=== PATIENT | female | born 1980 | race Two or more races ===

== ENCOUNTER 2024-06-19 11:12 | Emergency (ER) | payer SELFPAY ==
[2024-06-19 11:56] VITALS: BP 132/88; PULSE 93; RESP 16; TEMP 37; O2SAT 98; BMI 30.9
--- NOTE | 2024-06-19 12:03 | PD.EDADULT ---
ED General RME/HPI General Chief complaint: General Adult/Misc Complain Stated complaint: PREVIOUS NUMBNESS B/L HANDS AND RIGHT JAW Time Seen by Provider: 06/19/24 11:39 Arrival date/time: 06/19/24 11:12 RME / HPI RME / HPI narrative: 43-year-old female patient came in for evaluation regarding swelling to the right jaw area, throat swelling, and numbness to the bilateral hands. This been ongoing for the last several hours. Patient denies any shortness of breath. Denies any rashes. Denies any itchiness. Patient denies any swelling of the tongue. Patient was just recently started on lisinopril 10 mg daily for the last 3 days. Has been taking it for 3 days. No medication was taken prior travel. Related Data Previous Rx's ?Medication ?Instructions ?Recorded diphenhydramine HCl 25 mg capsule 25 mg PO TID PRN allergic reaction 06/19/24 (Aler-Cap) #30 caps prednisone 50 mg tablet 50 mg PO QDAY 5 days #5 tabs 06/19/24 Allergies Allergy/AdvReac Type Severity Reaction Status Date / Time No Known Allergies Allergy Verified 06/19/24 11:14 Review of Systems Review of Systems Narrative Review of Systems: Review of system reviewed and within normal limits except mentioned in HPI ED Exam Narrative Physical exam: VITAL SIGNS: Reviewed. GENERAL APPEARANCE: Alert and interactive, follows commands, no acute distress, HEAD AND FACE: Non-traumatic. ENT: PERRL, pink conjunctivitis, eyelid no trauma, Mucous membrane moist. No swelling noted on the bilateral mandibular area. NECK: Supple, nontender, no nuchal rigidity. CHEST: No tenderness, no crepitus, no paradoxical movement, no retractions. LUNGS: Clear, well ventilated, symmetric, no rales, no wheezing, no ronchi, no stridor, good breath sounds bilaterally. HEART: Regular rate, regular rhythm, no murmur, no gallops. ABDOMEN: Soft, positive bowel sounds, nondistended, no guarding, nontender, no rebound, no masses, RECTAL: Deferred. GENITAL: Deferred. NEUROLOGICAL: Gross motor function intact sensory function intact, Appropriate for age. MUSCULOSKELETAL: low back nontender, full range of motion. EXTREMITIES: Nontender, full range of motion. SKIN: Color pink, dry, no rash, no lacerations, no abrasions, no contusions. LYMPHATICS: Deferred. Course Quality Measures none Orders Category Date Time Status DiphenhydrAMINE [Benadryl] Med 06/19/24 12:02 Discontinued 50 mg PO X1 ONE Famotidine [Pepcid] Med 06/19/24 12:02 Discontinued 40 mg PO X1 ONE predniSONE Med 06/19/24 12:02 Discontinued 60 mg PO X1 ONE Vital Signs Vital signs: Vital Signs Temperature 98.6 F 06/19/24 11:56 Pulse Rate 93 06/19/24 11:56 Respiratory Rate 16 06/19/24 11:56 Blood Pressure 132/88 H 06/19/24 11:56 Pulse Oximetry (%) 98 06/19/24 11:56 Oxygen Delivery Method Room Air 06/19/24 11:56 [facility] Patient data External records reviewed:: None Clinical information provided by:: patient Social determinants that could affect healthcare access:: none Patient has the following chronic illnesses:: Hypertension How is presenting disease/condition affected by chronic disease/condition?: exacerbated by Evaluation data The following diagnostics were reviewed and interpreted by me:: other (specify) (None) Lab and/or radiology exams considered but not ordered:: None none none Interpretation Summary: None Medications Medications considered but not ordered:: None Medication administrations:: Medication Administration History Discontinued Medications Diphenhydramine HCl (Diphenhydramine 25 Mg Capsule) 50 mg PO X1 ONE Stop: 06/19/24 12:03 Last Admin: 06/19/24 12:30 Dose: 50 mg Documented By: BABAK Famotidine (Famotidine 20 Mg Tablet) 40 mg PO X1 ONE Stop: 06/19/24 12:03 Last Admin: 06/19/24 12:30 Dose: 40 mg Documented By: BABAK Prednisone (Prednisone 20 Mg Tablet) 60 mg PO X1 ONE Stop: 06/19/24 12:03 Last Admin: 06/19/24 12:30 Dose: 60 mg Documented By: BABAK Prednisone, famotidine, Benadryl Consultations Consultation(s) initiated? (list below): No Diagnosis Differential Diagnosis ED Complaint MDM: Allergic reaction, drug allergy, adverse effect of lisinopril Most likely diagnosis given after review of the tests above:: Drug allergy Admission Indicated Admission indicated?: not indicated Explain why admission is indicated or not indicated:: Stable Admission Request Was there a request for admission?: No Disposition Plan Disposition Plan: Discharge Discharge Attestation Discharge Attestation: Patient condition: Stable Medical Decision Making MDM Narrative MDM Narrative: 43-year-old female patient came in for evaluation regarding swelling to the right jaw area, throat swelling, and numbness to the bilateral hands. This been ongoing for the last several hours. Patient denies any shortness of breath. Denies any rashes. Denies any itchiness. Patient denies any swelling of the tongue. Patient was just recently started on lisinopril 10 mg daily for the last 3 days. Has been taking it for 3 days. No medication was taken prior travel. Patient was given prednisone, Pepcid and Benadryl with significant problems symptoms patient was advised to stop taking the lisinopril until she talk to her PCP in 1 to 2 days. Differential Diagnosis Differential Diagnosis: Allergic reaction, drug allergy, adverse effect of lisinopril Discharge Plan Plan Patient Disposition: HOME (Self Care) Disposition Comment: None Prescriptions/Referrals Prescriptions/Med Rec: New diphenhydramine HCl [Aler-Cap] 25 mg capsule 25 mg PO TID PRN (Reason: allergic reaction) Qty: 30 0RF prednisone 50 mg tablet 50 mg PO QDAY 5 Days Qty: 5 0RF Problem List Clinical Impression: Allergic drug reaction Patient/Caregiver Discharge Instructions Discharge Activity: activity as tolerated Education Materials: ED Medicine Reaction: Allergic Additional Instructions: Thank you for the opportunity for serving you today. You are stable for discharged . You are advised to: Follow-up with your PCP in 1 to 2 days Return to ED for worsening of symptoms Increase oral fluids Take medication as prescribed Do not take your lisinopril until you talk to your PCP Print Language: Congolese Stand Alone Forms: Kirstie Award Info., Patient Portal Info Letter PA/SUDHEER Supervising Physician CYNTHIA/SUDHEER Supervising Physician: MD Nisha
[2024-06-19] MEDS: FAMOTIDINE 20 MG TABLET 40 MG PO (12:30)
[2024-06-19] MEDS: DiphenhydrAMINE 25 MG CAPSULE 50 MG PO (12:30)
[2024-06-19] MEDS: predniSONE 20 MG TABLET 60 MG PO (12:30)
--- NOTE | 2024-06-19 15:19 | PC.NURSE ---
no answer x 1 at 1519. checked outside and lobby.
--- NOTE | 2024-06-19 15:28 | PC.NURSE ---
PT CALLED FOR DC AND NO ANSWER
== END 2024-06-19 16:48 | disposition home or self-care (01) ==
LOC: SERX 16:35
PROVIDERS: Emergency Provider Family Medicine
DX: R20.0 Anesthesia of skin (principal); T46.4X5A Adverse effect of angiotensin-converting-enzyme inhibitors, initial encounter
CPT/HCPCS: 99282; J7512; A9270

== ENCOUNTER → 2024-10-30 | Outpatient (CLI) | payer MEDICAID, SELFPAY ==
--- NOTE | 2024-10-30 08:00 | XR_ITS ---
Examination: MRI brain without intravenous contrast. Date and time of exam: October 30, 2024, 0823 hrs. Indications: Right-sided headaches beginning 3 years ago Technique: Multiple axial and sagittal images of the brain obtained. Siemens high-resolution 1.5 Malena short bore scanners utilized. Sagittal sections, T1-weighted, TR 500, TE 14, are performed. Axial sections proton-density and T2-weighted have been obtained. Inversion recovery axial images, TR 9, 260, TE 111, TI 2500. Diffusion weighted images, axial sections, TR 4800, TE 128, B value 1000 Axial sections, ADC map, TR 4800, TE 128 Findings: Enlargement of the sella turcica is not present. The optic chiasm and infundibular are not remarkable. Prepontine and interpeduncular cisterns are not enlarged. There is no localized enlargement of the medulla or reyna. Fourth ventricle and cerebellar tonsils appear normal in position. No subacute area of hemorrhage density is seen. Mass in the cerebellopontine angle region is not evident. Globes symmetrical. Orbital musculature including medial lateral rectus muscles do not exhibit abnormality. Diffusion-weighted images demonstrate no focus of restricted diffusion. Increased white matter signal not seen Mass effect upon the ventricular system is not identified. Impression: Negative for acute hemorrhage mass effect or midline shift No acute infarct No MR findings diagnostic for demyelinating disease. Significant chronic ethmoid sinusitis
== END | disposition home or self-care (01) ==
PROVIDERS: Referring Provider Student in an Organized Health Care Education/Training Program; Visit Provider Student in an Organized Health Care Education/Training Program
DX: J32.2 Chronic ethmoidal sinusitis (principal)
CPT/HCPCS: 70551